=== PATIENT | male | born 1930 | race Hispanic/Latino ===

== ENCOUNTER 2017-04-12 15:01 | Inpatient (IN) | payer MEDICARE ==
[2017-04-12 15:24] VITALS: BMI 18.6
[2017-04-12] MEDS ORDERED: Sodium Chloride 0.9% 500 ML IV STA ×2 (16:05→17:49)
--- NOTE | 2017-04-12 17:10 | RAD ---
HISTORY: Generalize weakness and dizziness. COMPARISON: 08/29/2015 FINDINGS: LUNGS: No active pulmonary disease. PLEURA: No significant pleural effusion identified, no pneumothorax apparent. CARDIOVASCULAR: No radiographic findings to suggest acute or significant cardiovascular disease. Macro CABGNormal. OSSEOUS STRUCTURES: No significant abnormalities. VISUALIZED UPPER ABDOMEN: Normal. OTHER FINDINGS: None. IMPRESSION: No active disease. No significant interval change compared to the prior examination(s).
[2017-04-12 17:16] LABS: VENOUS BLOOD GAS BASE EXCESS 5.6 mmol/L (0.0-2.0); VENOUS BLOOD GAS PO2 26 mm/Hg (30-55); VENOUS BLOOD PH 7.34 (7.32-7.43)
[2017-04-12 17:17] LABS: EOS % 0.1 % (1.5-5.0); GRAN # 9.31 (1.4-6.5); GRAN % 89.1 % (50.0-68.0); HEMOGLOBIN 13.8 g/dL (14.0-18.0); LYMPH # 0.5 (1.2-3.4); LYMPH % 5.2 % (22.0-35.0); MEAN CELL VOLUME 88.9 fl (80.0-105.0); MEAN CORPUSCULAR HEMOGLOBIN 29.4 pg (25.0-35.0); MEAN CORPUSCULAR HGB CONC 33.1 g/dl (31.0-37.0); MEAN PLATELET VOLUME 8.7 fl (7.0-11.0); MONO # 0.6 (0.1-0.6); MONO % 5.6 % (1.0-6.0); RBC 4.69 10^6/uL (3.5-6.1); RED CELL DISTRIBUTION WIDTH 13.8 % (11.5-14.5); WHITE BLOOD COUNT 10.5 10^3/ul (4.5-11.0)
[2017-04-12 17:27] LABS: ALB/GLOB RATIO 1.1 (1.1-1.8); ALBUMIN 3.6 g/dL (3.0-4.8); ALT/SGPT 22 U/L (7-56); AST/SGOT 26 U/L (17-59); BLOOD UREA NITROGEN 23 mg/dL (7-21); GFR AFRICAN-AMERICAN > 60; GFR NON-AFRICAN AMERICAN > 60; MAGNESIUM 1.9 mg/dL (1.7-2.2)
[2017-04-12 17:29] LABS: INR 1.3 (0.93-1.08); PARTIAL THROMBOPLASTIN TIME 30.5 Seconds (25.1-36.5); PROTHROMBIN TIME 14.9 SECONDS (9.4-12.5)
[2017-04-12 17:37] LABS: B-TYPE NATRIURETIC PEPTIDE 482 pg/mL (0-450); TROPONIN I < 0.01 ng/mL
[2017-04-12] MEDS ORDERED: cefTRIAXone 1 gm 1 GM/100 ML BAG IVPB STA (17:39)
--- NOTE | 2017-04-12 18:45 | ED PDOC ---
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 Family brought patient to the emergency department for evaluation. Patient is Alert and Oriented X1. Patient denies any chest pain, abdominal pain or any other complaints at this time. Symptom Onset: Sudden Symptom Course: Unchanged Activities at Onset: Rest Context: Home Past Medical History - Provider Review Nursing Documentation Reviewed: Yes - Infectious Disease Hx of Infectious Diseases: None - Tetanus Immunization Tetanus Immunization: Unknown - Cardiac Hx Cardiac Disorders: Yes Hx Hypertension: Yes - Neurological Hx Dementia: Yes (early stage) - Genitourinary/Gynecological Hx Prostate Problems: Yes (resolved within last year.) - Psychiatric Hx Substance Use: No - Surgical History Hx Open Heart Surgery: Yes (Heart valve replaced) - Anesthesia Hx Anesthesia: Yes Hx Anesthesia Reactions: No Family/Social History - Physician Review Nursing Documentation Reviewed: Yes Family/Social History: No Known Family HX Smoking Status: Never Smoked Hx Alcohol Use: No Hx Substance Use: No Hx Substance Use Treatment: No Allergies/Home Meds Allergies/Adverse Reactions: Allergies No Known Allergies Allergy (Verified 08/29/15 12:53) Home Medications: Home Meds Medication Instructions Recorded Confirmed Digitoxin mg PO 08/19/12 08/19/12 Review of Systems - Physician Review All systems were reviewed & negative as marked: Yes - Review of Systems Constitutional: Fevers (tactile), Other (shaking) Respiratory: Cough, Other (chest congestion) Cardiovascular: absent: Chest Pain Gastrointestinal: absent: Abdominal Pain Physical Exam Vital Signs Reviewed: Yes Vital Signs Temp Pulse Resp BP Pulse Ox 04/12/17 17:27 101.3 F H 04/12/17 16:53 115 H 18 132/71 95 04/12/17 15:21 98.7 F 80 24 115/58 L 90 L Temperature: Afebrile Blood Pressure: Normal Pulse: Regular Respiratory Rate: Normal Appearance: Positive for: Well-Appearing, Comfortable Pain Distress: None Mental Status: Positive for: other (A, OX1) - Systems Exam Head: Present: Atraumatic, Normocephalic Pupils: Present: PERRL Extroacular Muscles: Present: EOMI Conjunctiva: Present: Normal Mouth: Present: Moist Mucous Membranes Neck: Present: Normal Range of Motion Respiratory/Chest: Present: Decreased Breath Sounds (slightly decreased sound bibasilar). No: Respiratory Distress, Accessory Muscle Use Cardiovascular: Present: Regular Rate and Rhythm, Normal S1, S2. No: Murmurs Abdomen: Present: Normal Bowel Sounds. No: Tenderness, Distention, Peritoneal Signs Back: Present: Normal Inspection Upper Extremity: Present: Normal Inspection. No: Cyanosis, Edema Lower Extremity: Present: Normal Inspection. No: Edema Neurological: Present: GCS=15, CN II-XII Intact, Speech Normal Skin: Present: Warm, Dry, Normal Color. No: Rashes Psychiatric: Present: Alert, Normal Insight, Normal Concentration, Other ( Oriented X1) Medical Decision Making ED Course and Treatment: 04/12/17 18:43 Impression: An 87 year old male with chest congestion, cough, tactile temperature and shaky. Plan: -- EKG -- chest xray -- labs -- Urinalysis -- Tylenol, IV fluids, Rocephin -- Reassess and disposition Prior Visits: Notes and results from previous visits were reviewed. Patient was last seen in the emergency department on 08/29/15 for evaluation of generalized weakness and dizziness. Progress Notes: EKG: Ordered, reviewed, and independently interpreted the EKG. Rate : 107 BPM Rhythm : sinus tachycardia Interpretation : bifascicular bundle branch block 04/12/17 17:12 chest xray: Creator : Korey Valentine MD IMPRESSION: No active disease. No significant interval change compared to the prior examination(s). - Lab Interpretations Lab Results: 04/12/17 17:00 04/12/17 17:00 Lab Results 04/12/17 17:26: Influenza Typ A,B (EIA) Negative for flu a/b 04/12/17 17:00: Sodium 139, Chloride 100, Potassium 4.2, Carbon Dioxide 30, Anion Gap 14, BUN 23 H, Creatinine 0.8, Est GFR ( Amer) > 60, Est GFR ( Non-Af Amer) > 60, Random Glucose 140 H, Calcium 10.0, Phosphorus 2.5, Magnesium 1.9, Total Bilirubin 0.9, AST 26, ALT 22, Alkaline Phosphatase 54, Troponin I < 0.01, NT-Pro-B Natriuret Pep 482 H, Total Protein 7.0, Albumin 3.6 , Globulin 3.4, Albumin/Globulin Ratio 1.1 04/12/17 17:00: pO2 26 L, VBG pH 7.34, VBG pCO2 62.0 H, VBG HCO3 33.4 H, VBG Total CO2 35.3 H, VBG O2 Sat (Calc) 57.7, VBG Base Excess 5.6 H, VBG Potassium 4.2, Sodium 139.0, Chloride 104.0, Glucose 143 H, Lactate 1.5, FiO2 21.0, Venous Blood Potassium 4.2 04/12/17 17:00: PT 14.9 H, INR 1.30 H, APTT 30.5 04/12/17 17:00: WBC 10.5 D, RBC 4.69, Hgb 13.8 L, Hct 41.7 L, MCV 88.9, MCH 29.4, MCHC 33.1, RDW 13.8, Plt Count 120, MPV 8.7, Gran % 89.1 H, Lymph % (Auto ) 5.2 L, [place] % (Auto) 5.6, Eos % (Auto) 0.1 L, Baso % (Auto) 0.0, Gran # 9.31 H , Lymph # (Auto) 0.5 L, [place] # (Auto) 0.6, Eos # (Auto) 0.0, Baso # (Auto) 0.00 , ESR 31 H I have reviewed the lab results: Yes - RAD Interpretation Radiology Orders: 04/12/17 16:04 CHEST PORTABLE [RAD] Stat - EKG Interpretation Interpreted by ED Physician: Yes Type: 12 lead EKG - Medication Orders Current Medication Orders: Discontinued Medications Acetaminophen (Tylenol 325mg Tab) 975 mg PO STAT STA Stop: 04/12/17 17:40 Sodium Chloride (Sodium Chloride 0.9%) 500 mls @ 999 mls/hr IV .Q31M STA Stop: 04/12/17 16:35 Last Admin: 04/12/17 17:10 Dose: 999 mls/hr eMAR Start Stop Document 04/12/17 17:10 HI (Rec: 04/12/17 17:11 [id number]) Intravenous Solution Start Date 04/12/17 Start Time 17:00 Ceftriaxone Sodium (Rocephin 1 Gram Ivpb) 1 gm in 100 mls @ 200 mls/hr IVPB STAT STA PRN Reason: Protocol Stop: 04/12/17 18:08 Sodium Chloride (Sodium Chloride 0.9%) 500 mls @ 999 mls/hr IV .Q31M STA Stop: 04/12/17 18:19 Last Admin: 04/12/17 17:54 Dose: 999 mls/hr eMAR Start Stop Document 04/12/17 17:54 HI (Rec: 04/12/17 17:54 [facility]-[id number]) Intravenous Solution Start Date 04/12/17 Start Time 17:54 - Scribe Statement The provider has reviewed the documentation as recorded by the Nayaibsam Hammond Provider Scribe Attestation: All medical record entries made by the Scribe were at my direction and personally dictated by me. I have reviewed the chart and agree that the record accurately reflects my personal performance of the history, physical exam, medical decision making, and the department course for this patient. I have also personally directed, reviewed, and agree with the discharge instructions and disposition. Disposition/Present on Arrival - Present on Arrival History of DVT/PE: No History of Uncontrolled Diabetes: No Urinary Catheter: No History of Decub. Ulcer: No History Surgical Site Infection Following: None - Disposition Referrals: Shahzad Welsh MD [Primary Care Provider] - Follow up with primary Forms: [employer] (Italian)
[2017-04-12 21:28] LABS: PH,URINE 5.5 (4.7-8.0); URINE BILIRUBIN NEGATIVE (NEGATIVE); URINE BLOOD MODERATE (NEGATIVE); URINE GLUCOSE (UA) NEGATIVE (NEGATIVE); URINE LEUKOCYTE ESTERASE MODERATE Leu/uL (NEGATIVE); URINE NITRATE POSITIVE (NEGATIVE); URINE PROTEIN 30 mg/dL (<30 mg/dL); URINE UROBILINOGEN 0.2 E.U./dL (<1 E.U./dL)
[2017-04-12 21:32] LABS: URINE APPEARANCE CLOUDY (CLEAR); URINE COLOR YELLOW (YELLOW)
[2017-04-12 21:37] LABS: URINE BACTERIA MOD (NEG); URINE WBC TNTC /hpf (0-6)
--- NOTE | 2017-04-12 23:02 | CT ---
EXAM: CT Head Without Intravenous Contrast EXAM DATE/TIME: 04/12/2017 8:03 PM CLINICAL HISTORY: The patient age is 87 years old and is male; Signs and symptoms; Altered mental status/memory loss; Additional info: [facility] Facility exam id and description: Ct heads head w/o contrast TECHNIQUE: Axial computed tomography images of the head/brain without intravenous contrast. All CT scans at this facility use one or more dose reduction techniques, viz.: automated exposure control; ma/kV adjustment per patient size (including targeted exams where dose is matched to indication; i.e. head); or iterative reconstruction technique. Coronal and sagittal reformatted images were created and reviewed. COMPARISON: CT - HEAD W/O CONTRAST 2015-08-29 16:09 FINDINGS: Brain: There are periventricular foci of hypodensity, likely representing small vessel ischemic disease in a patient this age. 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 The acuity of the white matter disease is indeterminate. The white-baires differentiation is preserved demonstrating no acute territorial type infarct. There are calcifications within the globus pallidus bilaterally, which are likely physiologic. There is moderate prominence of the ventricles and sulci, compatible with atrophy. No acute intracranial hemorrhage is seen. Midline shift: There is no midline shift. Ventricles: See above. Bones/joints: The calvarium demonstrates no evidence for a depressed fracture. Soft tissues: No acute abnormality. Vasculature: There is atherosclerotic calcification of the cavernous internal carotid arteries and distal vertebral arteries. Sinuses: Minimal effusion is seen within the left maxillary sinus. There is minimal mucosal thickening of scattered ethmoid air cells. Mastoid air cells: Mild effusions are identified within the left mastoid air cells. IMPRESSION: 1. No acute intracranial hemorrhage or acute territorial type infarct. 2. There are periventricular foci of hypodensity, likely representing small vessel ischemic disease in a patient this age. 3. 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 4. Moderate stable atrophy. 5. Mild effusions are identified within the left mastoid air cells. 6. Paranasal sinus disease is noted above.
--- NOTE | 2017-04-12 23:12 | CT ---
EXAM: CT Chest Without Intravenous Contrast EXAM DATE/TIME: 04/12/2017 9:30 PM CLINICAL HISTORY: The patient age is 87 years old and is male; Signs and symptoms; Other: Sob/fever Facility exam id and description: Ct chests chest w/o contrast TECHNIQUE: Axial computed tomography images of the chest without intravenous contrast. All CT scans at this facility use one or more dose reduction techniques, viz.: automated exposure control; ma/kV adjustment per patient size (including targeted exams where dose is matched to indication; i.e. head); or iterative reconstruction technique. Coronal and sagittal reformatted images were created and reviewed. COMPARISON: DX - CHEST PORTABLE 2017-04-12 16:32 FINDINGS: Lungs: Nonspecific groundglass density infiltrates are seen within both lower lobes. There is mild biapical parenchymal scarring. Atelectatic changes visualized within the right middle lobe. Within the left upper lobe on series 4 image 42, there is a 4-5 mm calcified lung nodule. An additional calcified lung nodule seen within the left upper lobe measuring 9 mm. Pleural space: Small calcified pleural plaques are identified bilaterally, suggestive of asbestos exposure. No pneumothorax. No pleural effusions. Heart: There is coronary artery calcification. No cardiomegaly. Thyroid: There is a hypodense left thyroid lobe nodule measuring 0.9 x 0.5 cm. Bones/joints: Sternotomy wires are identified. Pectus excavatum is visualized. Hypertrophic degenerative changes are noted within the spine. Osteopenia. 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 The ascending aorta measures 4.0 cm in diameter. The descending thoracic aorta measure 3.2 cm in diameter. Atherosclerotic changes are identified of the aorta. Lymph nodes: Scattered mediastinal lymph nodes are identified, a few which are mildly enlarged. In the right paratracheal region, there is a 1.5 x 0.8 cm lymph node. These lymph nodes are nonspecific as to etiology. Evaluation for hilar lymphadenopathy is limited by the absence of intravenous contrast. Liver: At the dome of the liver, there is a 1.0 x 0.8 cm hypodense lesion, which is incompletely evaluated without contrast. Pancreas: There is atrophy of the pancreas. Kidneys and ureters: Nonspecific perinephric stranding is identified bilaterally. Stomach and bowel: The stomach is decompressed. Upper abdomen: There is elevation of the right hemidiaphragm. IMPRESSION: 1. Nonspecific groundglass density infiltrates are seen within both lower lobes. A follow-up chest CT and clinical correlation are recommended. 2. Small calcified pleural plaques are identified bilaterally, suggestive of asbestos exposure. 3. There is aneurysmal dilatation of the thoracic aorta. The ascending aorta measures 4.0 cm in diameter. The descending thoracic aorta measure 3.2 cm in diameter. 4. Scattered mediastinal lymph nodes are identified, a few which are mildly enlarged. These lymph nodes are nonspecific as to etiology. 5. There is a hypodense left thyroid lobe nodule measuring 0.9 x 0.[address] findings described above.
--- NOTE | 2017-04-13 04:45 | HP ---
HISTORY OF PRESENT ILLNESS: The patient is an 87-year-old, known to me from my office practice. The patient was recently seen last week for regular checkup; however, he was brought in by homemaker, who lives with the patient for 24 hours. She noticed that patient is increasingly shaky and he is having cough and congestion with some nasal stuffiness. The patient was seen on Monday with no obvious signs and symptoms above mentioned. The patient did not have above-mentioned symptoms on Monday. PAST MEDICAL HISTORY: Significant for 1. Advanced dementia. 2. History of cardiomyopathy. 3. AFib, corrected after aortic valve was replaced. ALLERGIES: HE IS NOT ALLERGIC TO ANY MEDICATION. MEDICATION AT HOME: He is on digoxin 0.125 daily. SOCIAL HISTORY: He is single. 2 years ago. He is being cared by 24-hour home health aide. REVIEW OF SYSTEMS: Significant for increasingly forgetful, having cough, congestion, fever. PHYSICAL EXAMINATION: GENERAL: He is awake and alert, but confused and disoriented. VITAL SIGNS: Temperature 101.3 rectally, pulse 115, respirations 18, and blood pressure 110/60. LUNGS: Bilateral soft crackles scattered. HEART: S1, S2 audible. ABDOMEN: Soft and nontender. No rebound. No guarding. NEUROLOGIC: He is awake and alert, but confused and disoriented. LABORATORY DATA: WBC is 10.5, hemoglobin is 13, hematocrit is 41, and platelets are 120. PT is 14.9 and INR is 1.30. Chemistries: Sodium 139, potassium 4.2, chloride 100, CO2 of 30, BUN 22, creatinine 0.8, and blood sugar of 140. BNP 482. Troponin is negative. Flu test is negative. X-ray of chest is unremarkable. EKG shows bifascicular block. ASSESSMENT: 1. Sepsis, etiology unclear, probably source is urinary. 2. History of cardiomyopathy. 3. History of valve replacement. 4. Dementia. PLAN: We will send blood culture and urine culture. We will empirically start on Rocephin and Zithromax, Tylenol as needed. We will order for a CT scan of the chest. Follow up urinalysis. We will follow up in a.m.. Shahzad Welsh MD
[2017-04-13 06:30] LABS: BASO # 0.01 K/mm3 (0.0-2.0); BASO % 0.1 % (0.0-3.0); EOS % 0.5 % (1.5-5.0); GRAN # 6.3 (1.4-6.5); GRAN % 72.8 % (50.0-68.0); HEMOGLOBIN 11.9 g/dL (14.0-18.0); LYMPH # 1.8 (1.2-3.4); LYMPH % 20.2 % (22.0-35.0); MEAN CELL VOLUME 89.4 fl (80.0-105.0); MEAN CORPUSCULAR HEMOGLOBIN 28.7 pg (25.0-35.0); MEAN CORPUSCULAR HGB CONC 32.1 g/dl (31.0-37.0); MEAN PLATELET VOLUME 8.7 fl (7.0-11.0); MONO # 0.6 (0.1-0.6); MONO % 6.4 % (1.0-6.0); RBC 4.15 10^6/uL (3.5-6.1); WHITE BLOOD COUNT 8.7 10^3/ul (4.5-11.0)
[2017-04-13 07:51] LABS: FREE T4 1.09 ng/dL (0.78-2.19)
[2017-04-13 08:04] LABS: ALT/SGPT 18 U/L (7-56); AST/SGOT 28 U/L (17-59); BLOOD UREA NITROGEN 25 mg/dL (7-21); CALCIUM 9.3 mg/dL (8.4-10.5); GFR AFRICAN-AMERICAN > 60; GFR NON-AFRICAN AMERICAN > 60
[2017-04-13] MEDS: cefTRIAXone 1 gm 1 GM/100 ML BAG IVPB SCH (09:40)
[2017-04-13] MEDS: Digoxin 0.05 mg/mL Elixir 5mL PO SCH (09:40)
[2017-04-13] MEDS: Azithromycin 500MG/NS 250ml 500 MG/250 ML BAG IVPB SCH (09:41)
--- NOTE | 2017-04-13 16:19 | CARD ---
APPROVED REPORT EKG Measurement Heart [id number] <Conclusion> Sinus tachycardia Left axis deviation Nonspecific intraventricular block Possible Lateral infarct, age undetermined Abnormal ECG
--- NOTE | 2017-04-13 21:00 | PN ---
DATE: SUBJECTIVE: Patient is an 87 years old, seen and examined. Confused, disoriented, not in any distress. No more fever noted. PHYSICAL EXAMINATION: VITAL SIGNS: He is afebrile, pulse 70, respirations 21, blood pressure 98/56. LUNGS: Bilateral fair air flow. No rhonchi or crackles. HEART: S1 and S2 audible. ABDOMEN: Soft, nontender. No rebound. No guarding. NEUROLOGICAL: Patient is awake, alert. Patient is sleepy, but arousable. LABORATORY DATA: Sodium 144, potassium 4.0, chloride 105, CO2 of 29, BUN 25, creatinine 0.7, blood sugar of 83. BNP 482. Urinalysis shows moderate blood, nitrites, and leukocytes. Digoxin level is 0.7. Flu test is negative. CT scan of the chest was done that shows nonspecific ground glass density infiltrate within the both lower lobes; small calcified pleural plaque; there is aneurysmal dilatation of the thoracic aorta, 4 cm in diameter; scattered mediastinal lymph nodes are identified, which are mildly enlarged, they are nonspecific. ASSESSMENT AND PLAN: 1. Altered mental status. 2. Probably urinary tract infection. 3. Acute cardiomyopathy. 4. Status post aortic valve replacement. PLAN: We will continue patient on current medications. We will closely monitor and will follow up his urine culture. Shahzad Welsh MD
[2017-04-14 06:44] LABS: HEMOGLOBIN 11.7 g/dL (14.0-18.0); MEAN CELL VOLUME 90.3 fl (80.0-105.0); MEAN CORPUSCULAR HGB CONC 32.1 g/dl (31.0-37.0); MEAN PLATELET VOLUME 8.7 fl (7.0-11.0); RBC 4.03 10^6/uL (3.5-6.1); RED CELL DISTRIBUTION WIDTH 13.7 % (11.5-14.5); WHITE BLOOD COUNT 7.3 10^3/ul (4.5-11.0)
[2017-04-14 06:45] LABS: ALB/GLOB RATIO 0.9 (1.1-1.8); ALBUMIN 2.9 g/dL (3.0-4.8); ALT/SGPT 20 U/L (7-56); AST/SGOT 24 U/L (17-59); BLOOD UREA NITROGEN 27 mg/dL (7-21); CALCIUM 9.3 mg/dL (8.4-10.5); GFR AFRICAN-AMERICAN > 60; GFR NON-AFRICAN AMERICAN > 60
[2017-04-14] MEDS ORDERED: Sodium Chloride 0.9% 1,000 ML IV SCH (09:00)
[2017-04-14] MEDS: Digoxin 0.05 mg/mL Elixir 5mL PO SCH (10:17)
[2017-04-14] MEDS: Azithromycin 500MG/NS 250ml 500 MG/250 ML BAG IVPB SCH (10:18)
[2017-04-14] MEDS: cefTRIAXone 1 gm 1 GM/100 ML BAG IVPB SCH (10:18)
--- NOTE | 2017-04-14 12:34 | PN ---
DATE: SUBJECTIVE: The patient is 87-year-old, seen and examined, looks much more awake, alert, and oriented, forgetful. PHYSICAL EXAMINATION: VITAL SIGNS: He is afebrile, pulse 64, respirations 21, blood pressure 85/55. LUNGS: Bilateral fair air flow. No rhonchi or crackles. HEART: S1 and S2 audible. ABDOMEN: Soft, nontender. No rebound. No guarding. NEUROLOGICAL: The patient is awake, alert, oriented, able to communicate but forgetful. Has generalized weakness. LABORATORY DATA: WBC is 7.3, hemoglobin 11.7, hematocrit 36.4, platelet 122. Chemistries: Sodium 143, potassium 4.2, chloride 106, CO2 of 21, BUN 27, creatinine 0.8, blood sugar of 80. CT scan of the chest has no significant findings. ASSESSMENT: 1. Probably urosepsis. 2. Altered mental status secondary to urinary tract infection. 3. Dehydration. 4. Deconditioning. PLAN: We will start the patient on IV fluids. Physical therapy evaluation has been requested. We will reevaluate the patient in a.m. Discharge plans once urine cultures are available to assess and switch the patient to p.o. antibiotics upon discharge. Shahzad Welsh MD
[2017-04-15] MEDS: cefTRIAXone 1 gm 1 GM/100 ML BAG IVPB SCH (09:25)
[2017-04-15] MEDS: Digoxin 0.05 mg/mL Elixir 5mL PO SCH (09:25)
--- NOTE | 2017-04-15 18:25 | PN ---
DATE: SUBJECTIVE: The patient is 87-year-old, seen and examined, looks much more awake, alert, able to communicate, eating and tolerating. PHYSICAL EXAMINATION: VITAL SIGNS: He is afebrile, pulse 55, respirations 18, blood pressure 94/62. LUNGS: Bilateral fair air flow. No rhonchi or crackles. HEART: S1 and S2 audible. ABDOMEN: Soft, nontender. No rebound. No guarding. NEUROLOGICAL: The patient is awake and alert, confused, disoriented. EXTREMITIES: Bilateral legs, no edema. LABORATORY DATA: There is no new labs available today. ASSESSMENT: 1. Gram-negative gregg urinary tract infection, most probably Escherichia coli. 2. Altered mental status secondary to urosepsis. 3. Dehydration. 4. Hypotension. 5. History of valve replacement. PLAN: We will continue the patient on Rocephin, continue on digoxin. No evidence of pneumonia. I will discontinue Zithromax. I will discontinue IV fluids. TCU evaluation has been requested; if accepted, the patient will be transferred to TCU. Shahzad Welsh MD
[2017-04-16] MEDS: Digoxin 0.05 mg/mL Elixir 5mL PO SCH (09:47)
[2017-04-16] MEDS: cefTRIAXone 1 gm 1 GM/100 ML BAG IVPB SCH (09:47)
[2017-04-17] MEDS: Digoxin 0.05 mg/mL Elixir 5mL PO SCH (09:28)
[2017-04-17] MEDS: cefTRIAXone 1 gm 1 GM/100 ML BAG IVPB SCH (09:30)
--- NOTE | 2017-04-17 10:17 | CON ---
DATE: 04/16/2017 HISTORY OF PRESENT ILLNESS: Mr. Villagran was admitted to the hospital with altered mental status and urosepsis. Urine culture growing gram-negative rods. He is currently awake, alert, oriented. He also developed fever and cough. No history of seizures, no headache. PAST MEDICAL HISTORY: 1. Advanced dementia. 2. History of cardiomyopathy. 3. Atrial fibrillation, aortic valve replacement. ALLERGIES: NO KNOWN DRUG ALLERGIES. HOME MEDICATIONS: Digoxin. SOCIAL HISTORY: Single. FAMILY HISTORY: Noncontributory. PERSONAL HISTORY: Nonsmoker. No history of alcohol abuse. REVIEW OF SYSTEMS: As per HPI. Rest of 12-point review of systems reviewed negative. PHYSICAL EXAMINATION GENERAL: Comfortably sitting in chair, in no acute distress. Alert and oriented x3. Communicative. HEENT: Normal. NECK: No lymphadenopathy. CHEST: Air entry present and equal bilateral. No added sounds. CARDIOVASCULAR: S1 and S2 normal. No murmur. No gallop. ABDOMEN: Soft, nontender. No hepatosplenomegaly. EXTREMITIES: No edema. SKIN: No petechiae. No rash. SPINE: Nontender. LABORATORY DATA: Urine culture, gram-negative rods. Sodium 143, potassium 4.2, creatinine 0.8, calcium 9.3 and total protein 6. White count 7.3, hemoglobin 11.7, hematocrit 36.4, platelet 122. CURRENT MEDICATIONS: Tylenol 650 p.r.n., ceftriaxone 1 g daily, digoxin 0.25 mg daily. ASSESSMENT: 1. Urinary tract infection, urosepsis. 2. History of cardiomyopathy. 3. History of aortic valve replacement. 4. Dementia. 5. Anemia. PLAN: He is currently on IV ceftriaxone. Urine growing gram-negative rods. Culture and sensitivity pending. He is out of bed sitting in chair. Altered mental status resolved. Son at bedside. Discussed at length with the son and the patient. He is awaiting bed for Transitional Care Unit for deconditioning. He has mild anemia, hemoglobin 11.7. Continue to monitor hemoglobin and hematocrit. Mariaelena Real MD
--- NOTE | 2017-04-17 11:43 | PQF UROSEP ---
This form is a permanent part of the medical record Clarification of your documentation is requested to better reflect the severity of illness and intensity of treatment of your patient. Please clarify " Urosepsis", is pt being treated for UTI or Sepsis dt UTI? Has Sepsis been ruled out? Indicators present [x] Documentation of UROSEPSIS [] Fever or hypothermia [] WBC count > 12,000/mm3 or <4000/mm3 or 10% immature neutrophils [] Hypotension [] Tachycardia [x] Altered mental status/confusion [x] + Urine/Blood Cultures [] Other: [] Location in the medical record that reflects the above clinical findings: [x]PN AMS 2nd to UROSEPSIS Treatment Provided: [] IV Rocephin PHYSICIAN'S RESPONSE Based on your medical judgment of the clinical indicators outlined above, are you treating this patient for a known or suspected: [x] Sepsis from a Urinary Source [] Localized Urinary Tract Infection - pyuria or bacteria in the urine [] Other, please indicate [] [] If unable to determine, please check the box, sign and date. Present On Admission (POA) Indicator: [x] Present at the time of admission [] Not present at the time of admission [] Clinically Undetermined In responding to this query, please exercise your independent professional judgment. The fact that a question is asked does not imply that any particular answer is desired or expected. Thank you for your clarification on this documentation. If you have any questions please call:[ ][phone] * Thank you, [ ]Elsa Samaniego RN CDS chicken catcher NORRIS
[2017-04-17] MEDS ORDERED: Promethazine DM 6.25 mg-15 mg/5 ml Syrup PO SCH (12:30)
[2017-04-17] MEDS: Promethazine DM 6.25 mg-15 mg/5 ml Syrup PO SCH ×2 (13:28→20:38)
[2017-04-17] MEDS: Levalbuterol 1.25 MG/3 ML Inhal Soln UD IH SCH ×2 (13:42→20:40)
--- NOTE | 2017-04-17 15:13 | PN ---
DATE: SUBJECTIVE: The patient is 87-year-old, seen and examined, lying in bed, seems to be comfortable. Complained of cough and congestion. Otherwise, doing better. PHYSICAL EXAMINATION: VITAL SIGNS: The patient is afebrile, pulse 75, respirations 20, and blood pressure 100/57. LUNGS: Bilateral fair airflow. No rhonchi. Few soft crackle in upper lung region, clears by coughing. HEART: S1 and S2 audible. ABDOMEN: Soft, nontender. No rebound. No guarding. NEUROLOGIC: The patient is awake, alert, oriented, able to communicate but forgetful. LABORATORY DATA: WBC 7.3, hemoglobin 11.7, hematocrit 36, platelet of 122. Chemistry, sodium 143, potassium 4.2, chloride 106, CO2 of 31, BUN 27, creatinine 0.8, blood sugar of 80. LFTs are within normal limits. ASSESSMENT: 1. Status post altered mental status. 2. Dehydration. 3. Urinary tract infection with pyuria. 4. Deconditioning and difficulty walking. PLAN: We will continue the patient on current antibiotics. Add nebulizer treatment and antitussives. Discharge plan according to physical therapy input. The patient can be transferred to subacute rehab or TCU if bed is available today. Shahzad Welsh MD
[2017-04-18] MEDS: Levalbuterol 1.25 MG/3 ML Inhal Soln UD IH SCH ×3 (01:38→13:32)
[2017-04-18] MEDS: Promethazine DM 6.25 mg-15 mg/5 ml Syrup PO SCH ×2 (04:41→13:40)
[2017-04-18 08:13] VITALS: BP 102/63; PULSE 77; RESP 21; TEMP 97.5; O2SAT 96
[2017-04-18] MEDS: Digoxin 0.05 mg/mL Elixir 5mL PO SCH (09:17)
[2017-04-18] MEDS ORDERED: Cefpodoxime (Vantin) 200 mg Tab PO SCH (10:00)
--- NOTE | 2017-04-18 15:10 | PN ---
DATE: SUBJECTIVE: The patient is 87 years old, seen and examined, lying in bed, seems to be comfortable, complain of scanty cough. No nausea or vomiting, no diarrhea. PHYSICAL EXAMINATION: VITAL SIGNS: Patient is afebrile, pulse 77, respirations 21, blood pressure 102/63. LUNGS: Bilateral good air flow. No rhonchi or crackles. HEART: S1, S2 audible. ABDOMEN: Soft, nontender. No rebound, no guarding. NEUROLOGIC: Patient is awake, alert, confused, disoriented. EXTREMITIES: Bilateral legs, no edema. ASSESSMENT: 1. Altered mental status. 2. Urinary tract infection. 3. Deconditioning, difficulty walking. 4. History of aortic valve replacement. 5. History of atrial fibrillation in the past, but cannot sinus rhythm. PLAN: Patient is currently on his baseline meds. He is on oral and promethazine. Give him nebulizer treatment. Awaiting transfer to [facility]. Shahzad Welsh MD
== END 2017-04-18 15:45 | DRG 872 ==
LOC: ED 15:01 → ERH 19:44 → 3RNO 04-13 00:10
PROVIDERS: ADMIT Internal Medicine; ATTEND Internal Medicine
PROC: 3E0F7GC Introduction of Other Therapeutic Substance into Respiratory Tract, Via Natural or Artificial Opening (ICD-10-PCS; principal; 2017-04-17)
DX: A41.9 Sepsis, unspecified organism (principal); N39.0 Urinary tract infection, site not specified; I42.9 Cardiomyopathy, unspecified; F03.90 Unspecified dementia, unspecified severity, without behavioral disturbance, psychotic disturbance, mood disturbance, and anxiety; E86.0 Dehydration; I48.91 Unspecified atrial fibrillation; D64.9 Anemia, unspecified; I10 Essential (primary) hypertension; R26.2 Difficulty in walking, not elsewhere classified; B96.89 Other specified bacterial agents as the cause of diseases classified elsewhere; Z95.2 Presence of prosthetic heart valve

== ENCOUNTER 2017-04-18 15:48 | Inpatient (IN) | payer OTHER, MEDICARE ==
[2017-04-18 16:03] VITALS: BMI 18.7
[2017-04-18] MEDS: Promethazine DM 6.25 mg-15 mg/5 ml Syrup PO SCH (18:54)
[2017-04-18] MEDS: Levalbuterol 1.25 MG/3 ML Inhal Soln UD IH SCH (20:50)
[2017-04-18] MEDS: Cefpodoxime (Vantin) 200 mg Tab PO SCH (21:51)
[2017-04-18] MEDS ORDERED: Influenza Vaccine 60 mcg/0.5 mL SYR (4YR UP) IM ONE (21:56)
[2017-04-18] MEDS ORDERED: Pneumococcal 23-Valent Vaccine IM ONE (21:56)
[2017-04-19] MEDS: Promethazine DM 6.25 mg-15 mg/5 ml Syrup PO SCH ×3 (00:24→17:15)
[2017-04-19] MEDS: Levalbuterol 1.25 MG/3 ML Inhal Soln UD IH SCH ×4 (01:14→21:12)
[2017-04-19] MEDS: Digoxin 0.05 mg/mL Elixir 5mL PO SCH (10:55)
[2017-04-19] MEDS: Cefpodoxime (Vantin) 200 mg Tab PO SCH ×2 (10:55→20:51)
--- NOTE | 2017-04-19 22:42 | HP ---
HISTORY OF PRESENT ILLNESS: Patient is 87 years old, who was initially admitted with cough, congestion, altered mental status, having shakes at home, difficulty walking. He was found to be dehydrated. So, he was admitted for further evaluation. Had urine culture done that shows UTI and also was dehydrated. Given IV fluids, doing well. Transferred to TCU for rehab and physical therapy. PAST MEDICAL HISTORY: Significant for: 1. Dementia, 2. Cardiomyopathy. 3. Status post aortic valve replacement. ALLERGIES: HE IS NOT ALLERGIC TO ANY MEDICATIONS. MEDICATIONS: At home, he is on digoxin and Aricept. SOCIAL HISTORY: He lives by himself with home health aid. No history of smoking, drinking, or alcohol use. PHYSICAL EXAMINATION: GENERAL: He is awake and alert, but confused and disoriented. VITAL SIGNS: He is afebrile. Pulse 76, respirations 20, blood pressure 100/55. LUNGS: Bilateral good air flow. No rhonchi or crackle. HEART: S1 and S2 audible. ABDOMEN: Soft, nontender. No rebound, no guarding. NEUROLOGICAL: Patient is awake and alert, able to communicate. ASSESSMENT: 1. Status post dehydration. 2. Status post altered mental status. 3. Deconditioning and difficulty walking. 4. Dementia. 5. Cardiomyopathy. PLAN: MAR reviewed. Continue current medications, encourage physical therapy. We will follow up patient. Shahzad Welsh MD
[2017-04-20] MEDS: Promethazine DM 6.25 mg-15 mg/5 ml Syrup PO SCH ×4 (00:53→23:42)
[2017-04-20] MEDS: Levalbuterol 1.25 MG/3 ML Inhal Soln UD IH SCH ×3 (08:11→20:58)
[2017-04-20] MEDS: Cefpodoxime (Vantin) 200 mg Tab PO SCH ×2 (08:38→20:54)
[2017-04-20] MEDS: Digoxin 0.05 mg/mL Elixir 5mL PO SCH (10:47)
--- NOTE | 2017-04-20 22:10 | PN ---
DATE: SUBJECTIVE: Patient is an 87 years old, seen and examined, lying in bed, seems to be comfortable, complained of scanty cough. No nausea or vomiting. No diarrhea. No fever. No chills. PHYSICAL EXAMINATION: VITAL SIGNS: He is afebrile, pulse 77, respiration 18, blood pressure 105/59. LUNGS: Bilateral fair airflow. No rhonchi or crackle. HEART: S1, S2 audible. ABDOMEN: Soft, nontender. No rebound, no guarding. NEUROLOGIC: Patient is awake and alert. Able to communicate, forgetful. ASSESSMENT: 1. Dementia . 2. Asthmatic bronchitis. 3. History of aortic valve replacement. 4. Cardiomyopathy. PLAN: So plan is I will start small dose of prednisone. Continue nebulizer treatment. Continue current antibiotic and we will reevaluate this patient in a.m. Shahzad Welsh MD
[2017-04-21] MEDS: Levalbuterol 1.25 MG/3 ML Inhal Soln UD IH SCH ×4 (01:40→21:18)
[2017-04-21] MEDS: Promethazine DM 6.25 mg-15 mg/5 ml Syrup PO SCH ×3 (08:00→23:59)
[2017-04-21] MEDS: Cefpodoxime (Vantin) 200 mg Tab PO SCH ×2 (08:00→20:23)
[2017-04-21] MEDS: Digoxin 0.05 mg/mL Elixir 5mL PO SCH (11:04)
--- NOTE | 2017-04-21 23:38 | PN ---
DATE: SUBJECTIVE: Patient is 87-year-old, seen and examined, lying in bed, seems to be comfortable. No nausea or vomiting. No diarrhea. No cough. No congestion. PHYSICAL EXAMINATION: VITAL SIGNS: Patient is afebrile, pulse 71, respiration 18, blood pressure 107/61. LUNGS: Bilateral good airflow. No rhonchi or crackle. HEART: S1 and S2 audible. ABDOMEN: Soft, nontender. No rebound, no guarding. NEUROLOGIC: He is awake and alert x2, but confused, disoriented at times. ASSESSMENT: 1. Status post urinary tract infection. 2. Status post dehydration. 3. Status post fall. 4. Dementia. 5. History of aortic valve repair. 6. Asthmatic bronchitis. PLAN: I will continue patient on current medications. He is on digoxin and promethazine. Prednisone has been started yesterday. I will continue . We will follow up patient. Shahzad Welsh MD
[2017-04-22] MEDS: Levalbuterol 1.25 MG/3 ML Inhal Soln UD IH SCH ×3 (07:15→19:02)
[2017-04-22] MEDS: Cefpodoxime (Vantin) 200 mg Tab PO SCH ×2 (08:18→20:02)
[2017-04-22] MEDS: Promethazine DM 6.25 mg-15 mg/5 ml Syrup PO SCH ×3 (09:00→23:53)
[2017-04-22] MEDS: Digoxin 0.05 mg/mL Elixir 5mL PO SCH (09:52)
--- NOTE | 2017-04-22 21:11 | PN ---
DATE: SUBJECTIVE: Patient is an 87-year-old, seen and examined. Son is by the bedside. He states that he chokes after he eats, even at home, and lately has been coughing a lot. He has been on antibiotic and prednisone with no significant relief. PHYSICAL EXAMINATION: VITAL SIGNS: He is afebrile, pulse 71, respirations 18, blood pressure 107/61. LUNGS: Bilateral soft rhonchi in upper lung region. HEART: S1 and S2 audible. ABDOMEN: Soft, nontender. No rebound, no guarding. NEUROLOGIC: Patient is awake and alert, confused, disoriented. ASSESSMENT AND PLAN: Asthmatic bronchitis, rule out airway microaspiration. We will continue him on current medications. I will request for swallow evaluation. Then we will make dietary modification according to recommendation. For now, he will be on steroid, nebulizer treatment, and antibiotic. Shahzad Welsh MD
[2017-04-23] MEDS: Levalbuterol 1.25 MG/3 ML Inhal Soln UD IH SCH ×4 (04:41→19:20)
[2017-04-23] MEDS: Cefpodoxime (Vantin) 200 mg Tab PO SCH ×2 (07:56→20:15)
[2017-04-23] MEDS: Promethazine DM 6.25 mg-15 mg/5 ml Syrup PO SCH ×2 (07:57→17:16)
[2017-04-23] MEDS: Digoxin 0.05 mg/mL Elixir 5mL PO SCH (10:00)
[2017-04-24] MEDS: Promethazine DM 6.25 mg-15 mg/5 ml Syrup PO SCH ×4 (00:12→23:55)
[2017-04-24] MEDS: Levalbuterol 1.25 MG/3 ML Inhal Soln UD IH SCH ×4 (01:11→21:13)
[2017-04-24] MEDS: Cefpodoxime (Vantin) 200 mg Tab PO SCH ×2 (07:46→20:59)
[2017-04-24] MEDS: Digoxin 0.05 mg/mL Elixir 5mL PO SCH (10:48)
--- NOTE | 2017-04-25 00:52 | PN ---
DATE: SUBJECTIVE: The patient is 87 years old, seen and examined, seems to be doing okay, still has cough and congestion. Swallowing evaluation noted patient does have microaspiration. Because of that reason, he usually coughs after eating, so swallowing evaluation noted and appreciated, recommended for pureed diet that has been started. PHYSICAL EXAMINATION: GENERAL: Otherwise, on examination he is awake, alert, oriented, able to communicate. VITAL SIGNS: He is afebrile, pulse 74, respirations 20, blood pressure 113/65. LUNGS: Bilateral soft crackle in upper lung region. HEART: S1 and S2 audible. ABDOMEN: Soft, nontender. No rebound. No guarding. NEUROLOGIC: The patient is awake, alert, oriented. ASSESSMENT: 1. Questionable dysphagia. 2. Asthmatic bronchitis. 3. Dementia. PLAN: I will request Dr. Daniels to evaluate the patient for possible dysphagia if he is a candidate for endoscopy to rule out any underlying malignancy or if this is muscular coordination issue. Shahzad Welsh MD
[2017-04-25] MEDS: Levalbuterol 1.25 MG/3 ML Inhal Soln UD IH SCH ×4 (01:31→21:05)
[2017-04-25] MEDS: Cefpodoxime (Vantin) 200 mg Tab PO SCH (08:40)
[2017-04-25] MEDS: Promethazine DM 6.25 mg-15 mg/5 ml Syrup PO SCH ×2 (08:40→15:33)
[2017-04-25] MEDS: Digoxin 250 mcg (0.25 mg) Tab PO SCH (10:41)
[2017-04-25 11:44] VITALS: RESP 18
--- NOTE | 2017-04-25 17:52 | CP.PCM.CON ---
History of Present Illness - History of Present Illness History of Present Illness: S&E at bedside in TCU. Chart reviewed. Request for GI consult is for dysphagia. HPI: This is an 87-year-old male with a past medical history of cardiomyopathy, dementia and aortic valve replacement in to the hospital was admitted with cough , congestion and altered mental status. The patient was dehydrated and also treated for UTI. The patient is awake and alert but is confused, poor historian. History obtained from nursing staff and patient's medical chart. The patient was reported to be having dysphagia, had a swallowing evaluation done in 04/23/2016 and recommended a pure honey thick diet. With one-to-one supervision. The patient denies any symptoms of dysphagia with liquids or solids. Reported that he enjoyed the food that he gets from the hospital and has not had any problem swallowing. No reports of nausea, vomiting, abdominal pain, diarrhea or overt GI bleed. Does report occasional constipation.The patient endorses that he had an endoscopy at [facility] a few years ago and is not certain of colonoscopy. Denies any symptoms of dyspepsia. Past medical history: Cardiomyopathy, dementia Surgical history: aortic valve replacement Family history: Noncontributory at this time Allergies: No known drug allergies Medications: Reviewed as per [facility] Social history: No history of smoking, EtOH or drug use, as per nursing staff patient lives at home with 24-hour care ROS: Systems reviewed with positive findings see HPI Ct. scan of chest, report reviewed, report scattered mediastinal lymph nodes are identified a few which are mildly enlarged, nonspecific ST etiology. Liver has a hypodense lesion, nonspecific groundglass density infiltrates are seen in both lower lobes, small calcified pleural plaques identified suggestive asbestos exposure, aneurysmal dilatation of the thoracic aorta. Past Patient History - Infectious Disease Hx of Infectious Diseases: None - Tetanus Immunizations Tetanus Immunization: Unknown - Past Social History Smoking Status: Unknown If Ever Smoked - CARDIAC Hx Cardiac Disorders: Yes Hx Hypertension: Yes - NEUROLOGICAL Hx Dementia: Yes (early stage) - MUSCULOSKELETAL/RHEUMATOLOGICAL Hx Falls: Yes (past) - GENITOURINARY/GYNECOLOGICAL Hx Reproductive Disorders: Yes - PSYCHIATRIC Hx Substance Use: No - SURGICAL HISTORY Hx Open Heart Surgery: Yes (Heart valve replaced) - ANESTHESIA Hx Anesthesia: Yes Hx Anesthesia Reactions: No Meds Allergies/Adverse Reactions: Allergies Allergy/AdvReac Type Severity Reaction Status Date / Time No Known Allergies Allergy Verified 08/29/15 12:53 - Medications Medications: Current Medications Acetaminophen (Tylenol 325mg Tab) 650 mg PO Q6H PRN; Protocol PRN Reason: Fever >100.4 F Last Admin: 04/20/17 10:49 Dose: 650 mg Cefpodoxime Proxetil (Vantin) 200 mg PO 0800,1999 [facility] PRN Reason: Protocol Last Admin: 04/25/17 08:40 Dose: 200 mg Digoxin (Lanoxin) 0.25 mg PO DAILY [facility] Last Admin: 04/25/17 10:41 Dose: 0.25 mg Levalbuterol HCl (Xopenex) 1.25 mg IH [id number] [facility] Last Admin: 04/25/17 07:15 Dose: 1.25 mg Prednisone (Prednisone Tab) 20 mg PO BID [facility] Last Admin: 04/25/17 10:41 Dose: 20 mg Promethazine HCl/Dextromethorphan (Phenergan Dm Syrup) 5 ml PO Q8H [facility] Last Admin: 04/25/17 08:40 Dose: 5 ml Physical Exam - Constitutional Appears: No Acute Distress - Head Exam Head Exam: NORMOCEPHALIC - Eye Exam Eye Exam: Normal appearance (another 15 minutes). absent: Scleral icterus - ENT Exam ENT Exam: Mucous Membranes Moist - Neck Exam Neck exam: Positive for: Normal Inspection - Respiratory Exam Respiratory Exam: NORMAL BREATHING PATTERN. absent: Respiratory Distress - Cardiovascular Exam Cardiovascular Exam: +S1, +S2 - GI/Abdominal Exam GI & Abdominal Exam: Normal Bowel Sounds, Soft. absent: Distended, Guarding, Organomegaly, Rebound, Tenderness - Extremities Exam Extremities exam: Positive for: pedal pulses present. Negative for: calf tenderness, pedal edema - Neurological Exam Neurological exam: Alert, Altered (confused at times), Oriented x3 - Skin Skin Exam: Dry, Warm Results - Vital Signs Recent Vital Signs: Last Vital Signs Temp 97.8 F 04/25/17 11:43 Pulse 63 04/25/17 11:43 Resp 18 04/25/17 11:43 BP 96/53 L 04/25/17 11:43 Pulse Ox 96 04/25/17 11:43 Assessment & Plan - Assessment and Plan (Free Text) Assessment: Assessment: Dysphagia Status post dehydration, altered mental status History of dementia Cardiomyopathy Mediastinal lymph nodes on chest CT, nonspecific as to etiology Liver hypodense lesion one measuring 1.0 x 0.8 cm Plan: Continue pure honey thick with aspiration precaution Consider esophagogram aspiration precaution May benefit from upper endoscopy if continues symptoms of dysphagia Thank you for this consult and follow his to participate in your patient's care , further recommendations based upon clinical course. Seen and discussed with Dr. Daniels.
--- NOTE | 2017-04-25 21:25 | PN ---
DATE: SUBJECTIVE: The patient is 87-year-old, seen and examined, lying in bed, seems to be comfortable, has less cough and congestion as compared to before. PHYSICAL EXAMINATION: VITAL SIGNS: He is afebrile, pulse 63, respirations 18, blood pressure 96/53. LUNGS: Bilateral good air flow. No rhonchi or crackles. HEART: S1 and S2 audible. ABDOMEN: Soft, nontender, no rebound, no guarding. NEUROLOGICAL: The patient is awake and alert, able to communicate, but somewhat confused and disoriented. ASSESSMENT AND PLAN: 1. Dysphagia, questionable microaspiration giving rise to intermittent cough, 2. Status post dehydration. 3. Status post fall. PLAN: I will cut down his steroids. Discontinue antibiotics and he is scheduled to be discharge in a.m. Shahzad Welsh MD
[2017-04-26] MEDS: Promethazine DM 6.25 mg-15 mg/5 ml Syrup PO SCH ×3 (01:26→17:51)
[2017-04-26] MEDS: Levalbuterol 1.25 MG/3 ML Inhal Soln UD IH SCH ×5 (02:35→21:02)
[2017-04-26] MEDS: Digoxin 250 mcg (0.25 mg) Tab PO SCH (11:03)
[2017-04-26] MEDS ORDERED: Sodium Chloride 0.9% 1,000 ML IV SCH (14:30)
[2017-04-26 16:32] VITALS: BP 86/49; PULSE 71; TEMP 97.7; O2SAT 96
--- NOTE | 2017-04-26 22:02 | PN ---
DATE: SUBJECTIVE: The patient is 87 years old, seen and examined, lying in bed comfortable. Occasional cough. No nausea, vomiting. No diarrhea. PHYSICAL EXAMINATION: VITAL SIGNS: He is afebrile, pulse 71, respirations 18, blood pressure 96/49. LUNGS: Bilateral fair airflow. No rhonchi or crackle. HEART: S1 and S2 audible. ABDOMEN: Soft. Nontender. No rebound. No guarding. NEUROLOGIC: The patient is awake and alert, able to communicate. The patient has endoscopy done because of dysphagia. Endoscopy shows normal exam. Normal duodenum and stomach. IMPRESSION: Probably motility disorder. PLAN: The patient will be watched another night. He will be advised to eat pureed diet. If he remains stable overnight, he will be discharging in the a.m. Shahzad Welsh MD
[2017-04-27] MEDS: Levalbuterol 1.25 MG/3 ML Inhal Soln UD IH SCH ×3 (03:30→13:18)
[2017-04-27] MEDS: Promethazine DM 6.25 mg-15 mg/5 ml Syrup PO SCH ×2 (08:07)
[2017-04-27] MEDS: Digoxin 250 mcg (0.25 mg) Tab PO SCH (10:15)
[2017-04-27 10:16] VITALS: PULSE 76
--- NOTE | 2017-04-27 10:22 | CP.PCM.PN ---
Subjective - Date & Time of Evaluation Date of Evaluation: 04/27/17 Time of Evaluation: 09:00 - Subjective Subjective: S&E at bedside, chart reviewed, s/p EGD was normal, no acute findings, place on puree diet. Patient no complaints, no acute overnight events. Objective - Vital Signs/Intake and Output Vital Signs (last 24 hours): Temp Pulse Resp BP Pulse Ox 97.7 F 71 18 86/49 L 96 04/26/17 10:00 04/26/17 10:00 04/26/17 20:00 04/26/17 10:00 04/26/17 20:00 Intake and Output: 04/27/17 04/27/17 06:59 18:59 Intake Total 360 Output Total 650 Balance -290 - Medications Medications: Current Medications Acetaminophen (Tylenol 325mg Tab) 650 mg PO Q6H PRN; Protocol PRN Reason: Fever >100.4 F Last Admin: 04/20/17 10:49 Dose: 650 mg Digoxin (Lanoxin) 0.25 mg PO DAILY [facility] Last Admin: 04/27/17 10:15 Dose: 0.25 mg Levalbuterol HCl (Xopenex) 1.25 mg IH [id number] [facility] Last Admin: 04/27/17 07:14 Dose: 1.25 mg Prednisone (Prednisone Tab) 20 mg PO 0800 [facility] PRN Reason: Protocol Last Admin: 04/27/17 08:07 Dose: 20 mg Promethazine HCl/Dextromethorphan (Phenergan Dm Syrup) 5 ml PO Q8H [facility] Last Admin: 04/27/17 08:07 Dose: 5 ml - Constitutional Appears: No Acute Distress - Head Exam Head Exam: NORMOCEPHALIC - Eye Exam Eye Exam: Normal appearance. absent: Scleral icterus - ENT Exam ENT Exam: Mucous Membranes Moist - Neck Exam Neck Exam: Normal Inspection - Respiratory Exam Respiratory Exam: NORMAL BREATHING PATTERN. absent: Respiratory Distress - Cardiovascular Exam Cardiovascular Exam: +S1, +S2 - GI/Abdominal Exam GI & Abdominal Exam: Soft, Normal Bowel Sounds. absent: Guarding, Tenderness, Rebound - Extremities Exam Extremities Exam: absent: Calf Tenderness, Pedal Edema - Neurological Exam Neurological Exam: Alert, Awake, Oriented x3 - Skin Skin Exam: Dry, Warm Assessment and Plan - Assessment and Plan (Free Text) Assessment: Assessment: Dysphagia, s/p egd, normal duodenum, stomach, esophagus, ? motility disorder Status post dehydration, altered mental status History of dementia Cardiomyopathy Mediastinal lymph nodes on chest CT, nonspecific as to etiology Liver hypodense lesion one measuring 1.0 x 0.8 cm Plan: Continue pure honey thick with aspiration precaution may benefit from neurology/ENT evaluation plan DC home today Seen and discussed with Dr. Daniels.
--- NOTE | 2017-04-28 16:47 | DS ---
HISTORY OF PRESENT ILLNESS: The patient is 87 years old who initially fell, felt weak, shaky, febrile, found to have pyuria, was treated with IV antibiotics, started to have cough, congestion and was suspected to have microaspiration, and was recommended to have pureed diet. The patient was deconditioned, so he was transferred to TCU where he received physical therapy. Dr. Daniels was consulted. The patient underwent endoscopy and was found to be normal without any masses. PHYSICAL EXAMINATION: GENERAL: Today, he is awake, alert, oriented, and communicative. VITAL SIGNS: He is afebrile, pulse 71, respirations 18, and blood pressure 86/49. LUNGS: Bilateral fair airflow. No rhonchi or crackle. HEART: S1 and S2 audible. ABDOMEN: Soft, nontender. No rebound, no guarding. NEUROLOGIC: The patient is awake and alert, able to communicate, but forgetful. ASSESSMENT: 1. Dementia. 2. Cardiomyopathy. 3. History of aortic valve replacement. 4. Esophageal motility disorder. PLAN: The patient is going to be on pureed diet from now onward, discussed with the patient's son and he will be seen by ENT for indirect laryngoscopy to rule out any pharyngeal or laryngeal disorder and he will go back on his digoxin. We will follow up the patient in the office in a week or two. Shahzad Welsh MD
== END 2017-04-27 14:15 | disposition home health service (06) | DRG 556 ==
LOC: TRCU 15:48
PROVIDERS: ADMIT Internal Medicine; ATTEND Internal Medicine
PROC: F07Z9FZ Gait Training/Functional Ambulation Treatment using Assistive, Adaptive, Supportive or Protective Equipment (ICD-10-PCS; principal; 2017-04-20)
PROC: F07Z5FZ Bed Mobility Treatment using Assistive, Adaptive, Supportive or Protective Equipment (ICD-10-PCS; 2017-04-20)
PROC: F07Z8FZ Transfer Training Treatment using Assistive, Adaptive, Supportive or Protective Equipment (ICD-10-PCS; 2017-04-20)
PROC: F0726YZ Therapeutic Exercise Treatment of Neurological System - Lower Back / Lower Extremity using Other Equipment (ICD-10-PCS; 2017-04-20)
PROC: F08Z1FZ Dressing Techniques Treatment using Assistive, Adaptive, Supportive or Protective Equipment (ICD-10-PCS; 2017-04-24)
PROC: F08Z2FZ Grooming/Personal Hygiene Treatment using Assistive, Adaptive, Supportive or Protective Equipment (ICD-10-PCS; 2017-04-24)
DX: R26.2 Difficulty in walking, not elsewhere classified (principal); I42.9 Cardiomyopathy, unspecified; E86.0 Dehydration; N39.0 Urinary tract infection, site not specified; R13.10 Dysphagia, unspecified; F03.90 Unspecified dementia, unspecified severity, without behavioral disturbance, psychotic disturbance, mood disturbance, and anxiety; J45.909 Unspecified asthma, uncomplicated; R41.82 Altered mental status, unspecified; Z95.2 Presence of prosthetic heart valve

== ENCOUNTER 2017-04-26 13:11 | Day surgery (SDC) | payer MEDICARE ==
[2017-04-25 10:44] VITALS: PULSE 63
[2017-04-26] MEDS ORDERED: Lidocaine 2% Inj (20ml) ONE (14:08)
[2017-04-26 15:15] VITALS: PULSE 62; RESP 16; TEMP 97.6; O2SAT 97
[2017-04-26 15:24] VITALS: BP 98/38
== END 2017-04-26 15:34 | disposition home or self-care (01) ==
LOC: ENDO 13:11
PROVIDERS: ATTEND Internal Medicine Gastroenterology
DX: R13.10 Dysphagia, unspecified (principal)
CPT/HCPCS: 43235; J7040